=== PATIENT | female | born 1960 | race Caucasian/White ===

== ENCOUNTER 2021-06-12 16:00 | Emergency (ER) | payer BC ==
[~2021-06-12] VITALS: Ht 160 cm; Wt 120.0 kg
[2021-06-12 16:18] VITALS: BP 128/87
--- NOTE | 2021-06-12 16:28 | PHYS DOC ---
Past History Past Medical History: Sciatica (LUKE MATTHEWS) Past Surgical History: No Surgical History (LUKE MATTHEWS) Alcohol Use: None (LUKE MATTHEWS) General Adult EDM: Chief Complaint: BACK PAIN - NO INJURY HPI: HPI: Patient is a 61 year old female with history of sciatica and chronic low back pain who presents with exacerbation of her low back pain. Patient rates her pain constant 8/10 and radiating down her left leg. She reports her last exacerbation was in January. Today, she was at work bent over a desk filling out applications when her pain began. She called her primary care physician, who scheduled her an appointment tomorrow morning. In describing her pain to her primary care provider, her primary care provider suggested she go to urgent care for acute pain control. Urgent care referred her to the emergency department. Patient denies injury/trauma, fever, chills, saddle anesthesia, loss of bowel or bladder. (LUKE MATTHEWS) Review of Systems: Review of Systems: 12 systems reviewed. ROS negative except as mentioned in HPI. (LUKE MATTHEWS) Current Medications: Current Meds: Current Medications Medications (Trade) Dose Ordered Sig/Adrianna Start Time Stop Time Status Last Admin Dose Admin Dexamethasone Sodium Phosphate (Decadron) 8 mg 1X ONCE 06/12/21 16:15 06/12/21 16:21 DC Orphenadrine Citrate (Norflex) 60 mg 1X ONCE 06/12/21 16:15 06/12/21 16:21 DC Tramadol HCl (Ultram) 50 mg 1X ONCE 06/12/21 16:15 06/12/21 16:21 DC (LUKE MATTHEWS) Allergies: Allergies: Allergies Coded Allergies Type Severity Reaction Last Updated Verified cephalexin Allergy Unknown 06/12/21 Yes succinylcholine Allergy Unknown 06/12/21 Yes (LUKE MATTHEWS) Physical Exam: PE: Constitutional: Obese, well groomed, in obvious pain, non-toxic appearance. Cardiovascular: Heart rate regular rhythm, no murmur. Lungs & Thorax: Bilateral breath sounds clear to auscultation. Skin: Warm, dry, no erythema, no rash. Back: No step-offs, no midline tenderness, bilateral paraspinal tenderness appreciated L>R, no CVA tenderness. Extremities: No tenderness, no cyanosis, no clubbing, ROM intact, no edema. Neurologic: Alert and oriented x4, no focal deficits noted. (LUKE MATTHEWS) Current Patient Data: Vital Signs: Vital Signs Date Time Temp Pulse Resp B/P (MAP) Pulse Ox O2 Delivery O2 Flow Rate FiO2 06/12/21 16:18 98.2 91 16 128/87 (101) 97 (LUKE MATTHEWS) Heart Score: C/O Chest Pain: No (LUKE MATTHEWS) Course & Med Decision Making: Course & Med Decision Making Pertinent Labs and Imaging studies reviewed. (See chart for details) Patient is known history of sciatica, patient will be treated for acute exacerbation. On reevaluation, patient pain is much improved. She will be discharged home with a prescription for Norflex and instruction to take her 800 mg ibuprofen every 6 hours versus 1 time per day. Patient does have a scheduled appointment with her primary care tomorrow morning. Advised that they come up with an acute treatment plan for exacerbations, such as today. (LUKE MATTHEWS) Dragon Disclaimer: Dragon Disclaimer: This electronic medical record was generated, in whole or in part, using a voice recognition dictation system. (LUKE MATTHEWS) Departure Departure: Impression: Primary Impression: Acute back pain with sciatica Qualified Codes: M54.42 - Lumbago with sciatica, left side Additional Impression: Acute exacerbation of chronic low back pain Disposition: HOME / SELF CARE / HOMELESS Condition: STABLE Referrals: HEMANT CRISTINA Patient Instructions: Sciatica, [id number] Additional Instructions: Please be sure to keep your appointment with your primary care provider tomorrow morning. I advised that you discuss a plan for treatment for acute exacerbations, such as today. Please return to the emergency department if your pain is uncontrolled at home. Scripts Orphenadrine Citrate (ORPHENADRINE CITRATE) 100 Mg Tablet.er 1 TAB PO BID for muscle spasm, #20 TAB 1 Refill Prov: LUKE MATTHEWS 06/12/21 Attending Signature Attending Signature I have reviewed the PA/MANAGER HYDRAULIC's note and plan of care. I was available for consultation as needed during the patient's visit in the emergency department. I agree with the clinical impression, plan, and disposition. (RESENDIZ,EDGAR LUKE VANEGAS Jun 12, 2021 16:28 EDGAR RESENDIZ DO Jun 12, 2021 22:13
[2021-06-12] MEDS: traMADol 50 MG TABLET PO ONE (16:30)
[2021-06-12] MEDS: DEXAMETHASONE SOD PHOS 4 MG/ML VIAL. IVP ONE (16:31)
[2021-06-12] MEDS: ORPHENADRINE CITRATE 60 MG/2 ML VIAL. IM ONE (16:31)
[2021-06-12] MEDS ORDERED: ORPH-16 PO (17:01)
== END 2021-06-12 17:17 | disposition home or self-care (01) ==
LOC: ER 16:00
DX: M54.42 Lumbago with sciatica, left side (principal); G89.29 Other chronic pain; Z88.1 Allergy status to other antibiotic agents; Z88.8 Allergy status to other drugs, medicaments and biological substances
CPT/HCPCS: 96372; 96374; 99283; J1100; J2360